=== PATIENT | female | born 1985 | race African-American/Black ===

== ENCOUNTER 2021-08-30 23:47 | Emergency (ER) | payer OTHER, SELFPAY ==
[2021-08-31 00:34] LABS: Hemoglobin 13.9 g/dL (12.0-15.5); Mean Corpuscular HGB CONC 33.1 g/dL (32.0-36.0); Mean Corpuscular Hemoglobin 28.4 pg (27.0-33.0); Mean Corpuscular Volume 85.7 fl (81.6-98.3); Mean Platelet Volume 9.8 fl (7.4-10.4); Platelet Count 320 10x3/uL (150-450); RBC Distribution Width 13.1 % (11.5-14.5); White Blood Cell (WBC) Count 6.7 10x3/uL (3.5-10.5)
[2021-08-31 00:51] LABS: ALT (SGPT) 19 U/L (8-55); AST (SGOT) 17 U/L (5-34); Albumin 4.2 g/dL (3.5-5.0); Alkaline Phosphatase 94 U/L (40-110); Anion Gap 14 mmol/L (10-20); BUN (Urea Nitrogen) 12 mg/dL (7.0-18.7); Bilirubin, Total 0.4 mg/dL (0.2-1.2); CK (CPK) 104 U/L (29-168); Calc. Creatinine Clearance 0 mL/min (70-130); Calcium 10.2 mg/dL (7.8-10.44); Carbon Dioxide 24 mmol/L (22-29); Chloride 103 mmol/L (98-107); Estimated GFR 87; Globulin 3.7 g/dL (2.4-3.5); Glucose 96 mg/dL (70-105); Lipase 43 U/L (8-78); Potassium 3.6 mmol/L (3.5-5.1); Protein, Total 7.9 g/dL (6.0-8.3); Sodium 137 mmol/L (136-145)
[2021-08-31 01:05] LABS: MDiff Complete? YES
[2021-08-31 01:14] LABS: Eosinophils 2 % (0-10); Lymphocytes 52 % (21-51); Monocytes 9 % (0-10); Neutrophil 37 % (42-75)
[2021-08-31 01:15] LABS: Platelet Morphology Comment Appears Adequate; RBC Morphology Normal
== END 2021-08-31 01:37 | disposition home or self-care (01) ==
LOC: CSHERS 23:47
DX: M79.89 Other specified soft tissue disorders (principal)
CPT/HCPCS: 36415; 71045; 80053; 82550; 83690; 83880; 84484; 85025; 93005; 93970; 96374

== ENCOUNTER 2022-06-05 05:15 | Emergency (ER) | payer BC, OTHER ==
[2022-06-05] MEDS ORDERED: Morphine 4 MG/ML VIAL ONE (05:47)
[2022-06-05] MEDS ORDERED: Ondansetron PF 4 MG/2 ML Vial ONE (05:48)
[2022-06-05 06:21] LABS: Hemoglobin 12.9 g/dL (12.0-15.5); MDiff Complete? YES; Mean Corpuscular HGB CONC 32.3 g/dL (32.0-36.0); Mean Corpuscular Hemoglobin 28.2 pg (27.0-33.0); Mean Corpuscular Volume 87.1 fl (81.6-98.3); Platelet Count 283 10x3/uL (150-450); RBC Distribution Width 12.9 % (11.5-14.5); Red Blood Cell (RBC) Count 4.58 10x6/uL (3.90-5.03)
[2022-06-05 06:40] LABS: ALT (SGPT) 12 U/L (8-55); AST (SGOT) 11 U/L (5-34); Albumin 3.8 g/dL (3.5-5.0); Alkaline Phosphatase 82 U/L (40-110); Anion Gap 12 mmol/L (10-20); BUN (Urea Nitrogen) 11 mg/dL (7.0-18.7); Bilirubin, Total 0.4 mg/dL (0.2-1.2); Calc. Creatinine Clearance 0 mL/min (70-130); Calcium 9.3 mg/dL (7.8-10.44); Carbon Dioxide 24 mmol/L (22-29); Chloride 106 mmol/L (98-107); Estimated GFR 87; Globulin 3.2 g/dL (2.4-3.5); Glucose 102 mg/dL (70-105); Lipase 321 U/L (8-78); Potassium 4.1 mmol/L (3.5-5.1); Sodium 138 mmol/L (136-145)
[2022-06-05 06:49] LABS: Band 1 % (5-11); Eosinophils 2 % (0-10); Lymphocytes 56 % (21-51); Monocytes 8 % (0-10); Neutrophil 33 % (42-75)
[2022-06-05 06:51] LABS: Platelet Morphology Comment Appears Adequate
[2022-06-05 06:52] LABS: RBC Morphology Normal
[2022-06-05] MEDS ORDERED: Iopamidol 300 61% 100 ML VIAL FS ONE (13:52)
== END 2022-06-05 07:48 | disposition home or self-care (01) ==
LOC: CSHERS 05:15
DX: K62.5 Hemorrhage of anus and rectum (principal)
CPT/HCPCS: 74177; 80053; 83690; 85025; 86850; 86900; 86901; 96374; 96375; J2270; J2405; Q9967

== ENCOUNTER 2022-09-29 14:00 | Emergency (ER) | payer BC ==
[~2022-09-29 14:00] MED LIST: Iopamidol 300 61% 100 ML VIAL FS ONE
[2022-09-29] MEDS ORDERED: Morphine 4 MG/ML VIAL ONE (14:35)
[2022-09-29] MEDS ORDERED: Ondansetron PF 4 MG/2 ML Vial ONE (14:36)
[2022-09-29 14:50] LABS: #Monocytes 0.4 10x3/uL (0.0-1.1); #Neutrophils 1.3 10x3/uL (1.5-8.4); %Basophils 0.7 % (0.0-2.0); %Lymphocytes 57.3 % (18.0-47.0); %Monocytes 9.1 % (0.0-10.0); %Neutrophils 31.7 % (40.0-75.0); Hematocrit 41.9 % (34.9-44.5); Hemoglobin 13.6 g/dL (12.0-15.5); Mean Corpuscular HGB CONC 32.5 g/dL (32.0-36.0); Mean Corpuscular Hemoglobin 28.3 pg (27.0-33.0); Mean Corpuscular Volume 87.1 fl (81.6-98.3); Mean Platelet Volume 9.6 fl (7.4-10.4); Platelet Count 293 10x3/uL (150-450); RBC Distribution Width 12.8 % (11.5-14.5); Red Blood Cell (RBC) Count 4.81 10x6/uL (3.90-5.03); White Blood Cell (WBC) Count 4.2 10x3/uL (3.5-10.5)
[2022-09-29 15:02] LABS: ALT (SGPT) 17 U/L (8-55); AST (SGOT) 15 U/L (5-34); Alkaline Phosphatase 86 U/L (40-110); Anion Gap 13 mmol/L (10-20); BUN (Urea Nitrogen) 9 mg/dL (7.0-18.7); Bilirubin, Total 0.4 mg/dL (0.2-1.2); Calc. Creatinine Clearance 0 mL/min (70-130); Calcium 8.8 mg/dL (7.8-10.44); Carbon Dioxide 23 mmol/L (22-29); Chloride 106 mmol/L (98-107); Estimated GFR 88; Globulin 3.2 g/dL (2.4-3.5); Glucose 95 mg/dL (70-105); Lipase 35 U/L (8-78); Potassium 3.9 mmol/L (3.5-5.1); Protein, Total 7.2 g/dL (6.0-8.3); Sodium 138 mmol/L (136-145)
[2022-09-29 16:09] LABS: Bilirubin Neg (Negative); Blood, Urine Negative (Negative); Clarity Clear (Clear); Glucose, Urine (Dipstick) Normal (Negative); Ketone, Urine Negative (Negative); Leukocyte Negative (Negative); Nitrite Negative (Negative); Protein, Urine (Dipstick) Negative (Neg-Trace); Urobilinogen Normal mg/dL (Less than 2)
[2022-09-29 16:18] LABS: Bacteria/HPF 2+ HPF (None Seen); CAUTI Indications for Culture Pelvic or flank pain; RBC/HPF 0-3 HPF (0-3); WBC/HPF 0-3 HPF (0-3)
[2022-09-29 16:19] LABS: Urine Culture Reflex No No
== END 2022-09-29 16:56 | disposition home or self-care (01) ==
LOC: CSHERS 14:00
DX: R10.31 Right lower quadrant pain (principal); R10.32 Left lower quadrant pain
CPT/HCPCS: 36415; 74177; 80053; 81001; 83690; 85025; 96374; 96375; J2270; J2405; Q9967